=== PATIENT | female | born 1965 | race Caucasian/White ===

== ENCOUNTER → 2021-09-15 | Day surgery (SDC) | payer OTHER ==
[~2021-09-15] VITALS: Ht 162.6 cm; Wt 104.3 kg
[~2021-09-15] MED LIST: METFORMIN HCL750 MG PO; SYNTHROID25 MCG PO; VITAMIN D3 PO
== END | disposition home or self-care (01) ==
LOC: FAS 08:16
DX: Z12.11 Encounter for screening for malignant neoplasm of colon (principal); D12.3 Benign neoplasm of transverse colon; K62.1 Rectal polyp; K64.4 Residual hemorrhoidal skin tags; Z88.1 Allergy status to other antibiotic agents
CPT/HCPCS: J2250; J2704; J7120